=== PATIENT | female | born 1945 | race Caucasian/White ===

== ENCOUNTER → 2019-09-05 | Outpatient (CLI) | payer MEDICARE ==
[2019-09-04 15:16] LABS: C DIFFICILE GDH NEGATIVE (NEGATIVE)
== END ==
LOC: LAB 12:00
PROVIDERS: ATTEND Internal Medicine
DX: R19.7 Diarrhea, unspecified (principal)
CPT/HCPCS: 87177; 87324; 87449

== ENCOUNTER → 2019-09-12 | Outpatient (CLI) | payer MEDICARE | LOC: LAB 09:55 | PROVIDERS: ATTEND Internal Medicine | DX: R19.7 Diarrhea, unspecified (principal) | CPT/HCPCS: 87045; 87205 ==